=== PATIENT | male | born 1960 | race Caucasian/White ===

== ENCOUNTER → 2016-11-29 | Outpatient (CLI) | payer BC ==
[~2016-11-29] MED LIST: CALC-51 PO; CHOL1POW32 PO; COUMADIN PO; MULTTAB PO; VITAMIN PO
--- NOTE | 2016-11-29 15:46 | DIAGNOSTIC IMAGING REPORT ---
LUMBAR SPINE 5 VIEWS CLINICAL HISTORY: Fall with low back pain. FINDINGS: 5 views of the lumbar spine are correlated with abdominal CT dated 06/11/2008. The skeletal structures are well mineralized. There is no radiographic evidence of fracture or malalignment. Vertebral body height and alignment are maintained. There is mild anterior wedging of T10 and T11. The transverse and spinous processes are intact. There is no evidence of spondylolysis. Small anterior osteophytes are seen throughout. Minimal endplate sclerosis is present at L2-L3. Mild degenerative disc space narrowing is present at L4-L5 and L5-S1. The remaining intervertebral disc spaces are well-maintained. The visualized bony pelvis appears intact. There is a nonobstructed abdominal bowel gas pattern. There is mild to moderate atherosclerotic calcification of the abdominal aorta. IMPRESSION: No acute bony abnormality is seen involving the lumbosacral spine. Electronically signed by: Brad Pavon M.D. 11/29/2016 3:44 PM Dictated Date/Time: 11/29/2016 3:42 PM
== END | disposition home or self-care (01) ==
LOC: C.RAD1850 15:19
PROVIDERS: ATTEND Emergency Medicine
DX: M54.5 Low back pain (principal)

== ENCOUNTER → 2016-12-22 | Outpatient (CLI) | payer BC ==
[2016-12-22 15:21] LABS: INR 2.8 (0.9-1.1); PROTHROMBIN TIME (PATIENT) 30.7 SECONDS (9.0-12.0)
== END | disposition home or self-care (01) ==
LOC: C.LABSPEC 11:08
PROVIDERS: ATTEND Family Medicine
DX: K55.069 Acute infarction of intestine, part and extent unspecified (principal)

== ENCOUNTER → 2017-06-21 | Outpatient (CLI) | payer BC ==
[2017-06-21 14:44] LABS: INR 1.4 (0.9-1.1)
== END | disposition home or self-care (01) ==
LOC: C.LAB 16:17
PROVIDERS: ATTEND Family Medicine
DX: K55.8 Other vascular disorders of intestine (principal)

== ENCOUNTER → 2017-08-02 | Outpatient (CLI) | payer BC ==
[2017-08-02 16:40] LABS: INR 2.2 (0.9-1.1); PROTHROMBIN TIME (PATIENT) 23.8 SECONDS (9.0-12.0)
== END | disposition home or self-care (01) ==
LOC: C.LAB 12:48
PROVIDERS: ATTEND Family Medicine
DX: K55.8 Other vascular disorders of intestine (principal)

== ENCOUNTER → 2017-09-13 | Outpatient (CLI) | payer BC ==
[2017-09-13 15:53] LABS: INR 2.3 (0.9-1.1); PROTHROMBIN TIME (PATIENT) 25.7 SECONDS (9.0-12.0)
== END | disposition home or self-care (01) ==
LOC: C.LAB 12:14
PROVIDERS: ATTEND Family Medicine
DX: K55.8 Other vascular disorders of intestine (principal)

== ENCOUNTER → 2018-01-24 | Outpatient (CLI) | payer BC, OTHER | END | disposition home or self-care (01) | LOC: C.LAB 16:16 | PROVIDERS: ATTEND Family Medicine | DX: K55.8 Other vascular disorders of intestine (principal) ==